=== PATIENT | female | born 1980 | race Caucasian/White ===

== ENCOUNTER 2023-01-25 17:56 | Emergency (ER) | payer BC, SELFPAY ==
--- NOTE | ~2023-01-25 | CT_ITS ---
EXAMINATION: CTA chest PE protocol DATE: 01/25/2023 19:48 INDICATION: hx cancer, SOB, tachycardia TECHNIQUE: Computed tomography angiography (CTA) of the chest was performed with 100 mL Omnipaque-350 intravenous contrast timed to evaluate the pulmonary arteries. Coronal maximum intensity projection 3D-reconstructions were created by the technologist. The dose-length product (DLP) was 315.77 mGy-cm. Automated exposure control and iterative reconstruction technique were employed. COMPARISON: None. FINDINGS: Lung parenchyma and airways: Clear. Pleura: Unremarkable. Thoracic inlet, axillae and chest wall: Bilateral breast augmentation. Right chest port terminating i n the distal SVC. Thoracic aorta: Normal. Mediastinum: Normal. Heart and pericardium: Normal. Coronary artery calcifications: Absent. Upper abdomen: No significant finding. Bones: No acute osseous finding. Pulmonary arteries: Study quality: Beam hardening artifact from metallic components in the breast imp lants degraded image quality, overall the study is diagnostic. No pulmonary emboli detected. IMPRESSION: No CT evidence of acute pulmonary embolus. No acute thoracic process detected. Reviewed, dictated and finalized at location K.
--- NOTE | ~2023-01-25 | US_ITS ---
EXAMINATION: US venous doppler [facility] DATE: 01/25/2023 21:18 INDICATION: leg pain/swelling, hx CA, . TECHNIQUE: Grayscale images without and with compression and Doppler images of the bilateral lower ex tremity veins were obtained. COMPARISON: None FINDINGS: The right common femoral vein, profunda (deep) femoral vein, femoral vein, popliteal vein, peroneal v ein, posterior tibial veins, gastrocnemius vein, and greater saphenous vein are patent. The left common femoral vein, profunda (deep) femoral vein, femoral vein, popliteal vein, peroneal v ein, posterior tibial veins, gastrocnemius vein, and greater saphenous vein are patent. IMPRESSION: 1. Patent bilateral lower extremity veins. No evidence of deep venous thrombosis. Reviewed, dictated and finalized at location K. IMPRESSION: 1. Patent bilateral lower extremity veins. No evidence of deep venous thrombos is.
[2023-01-25 17:57] VITALS: BP 149/101; PULSE 144; RESP 20; TEMP 36.1; O2SAT 98
[2023-01-25 18:06] VITALS: BP 139/94; PULSE 142; RESP 15; O2SAT 100
[2023-01-25 18:14] VITALS: BP 139/94; PULSE 120; RESP 18; O2SAT 100
[2023-01-25 18:16] VITALS: BP 149/102; PULSE 123; RESP 14; O2SAT 100
--- NOTE | 2023-01-25 18:26 | ECG_ITS ---
Measurements Intervals [place] Rate: 111 P: 54 MA: 139 QRS: 35 QRSD: 82 T: 42 QT: 326 QTc: 444 Interpretive Statements SINUS TACHYCARDIA ABNORMAL ECG NO PREVIOUS ECG AVAILABLE FOR COMPARISON Electronically Signed On 01-25-2023 21:06:54 CDT by Al Kimble D.O.
--- NOTE | 2023-01-25 18:30 | ED.GENADULT ---
HPI - General Adult General Chief complaint: Unspecified Stated complaint: pain all over Time Seen by Provider: 01/25/23 18:14 History of Present Illness HPI narrative: Patient is a 42-year-old female with history of stage II breast cancer here due to fatigue, nausea, and pain all over . She had her first dose of chemotherapy 2 days ago. She follows with an oncologist at [facility]. States that she woke up this morning feeling quite fatigued which has worsened throughout the day when she is trying to do her ADLs. States that she feels very dehydrated and anxious. Some shortness of breath as well in addition to bilateral leg soreness . Related Data Allergies Allergy/AdvReac Type Severity Reaction Status Date / Time No Known Allergies Allergy Verified 01/25/23 18:15 Review of Systems Review of Systems: Gen: Reports anxiety and weakness Eyes: Denies eye pain or visual change ENT: Denies congestion Respiratory: Reports shortness of breath CV: Denies chest pain or palpitations GI: Denies abdominal pain nausea, emesis or diarrhea : denies burning, urgency, frequency or hematuria Musculoskeletal: Denies back pain or muscle pain Neuro: Denies numbness, tingling, weakness or focal weakness Skin: Denies rash Except as documented, all other systems reviewed and negative Exam Narrative: APPEARANCE: Very anxious appearing Head: Normocephalic and atraumatic. EYES: PERRLA/EOMI, conjunctivae clear NOSE: No nasal drainage EARS: External ear normal in appearance THROAT: Oropharynx is clear. Mucous membranes are moist. NECK: Supple. No adenopathy, no masses. RESPIRATORY: Airway patent, respirations nonlabored. Clear to auscultation bilaterally, no rales, rhonchi, wheezing. CARDIOVASCULAR: 2+ dp/pt pulses. Tachycardic. Regular rhythm without murmurs, rubs, or gallops. ABDOMINAL: Normoactive bowel sounds. Soft, nontender, nondistended. No rebound tenderness or guarding. MUSCULOSKELETAL: No calf tenderness. Extremities are warm and well-perfused. Moves all extremities well. No edema. NEURO: Normal speech. No focal neurologic deficits. SKIN: Skin is warm and dry. No rashes. PSYCHIATRIC: Normal affect/mood. Course Vital Signs Vital signs: Vital Signs Temperature 97.0 F L 01/25/23 17:57 Pulse Rate 144 H 01/25/23 17:57 Respiratory Rate 20 05/09/23 17:57 Blood Pressure 149/101 H 01/25/23 17:57 Pulse Oximetry 98 01/25/23 17:57 Oxygen Delivery Room Air 01/25/23 17:57 Temperature 97.0 F L 01/25/23 17:57 Pulse Rate 109 H 01/25/23 20:23 Respiratory Rate 15 01/25/23 20:23 Blood Pressure 121/78 01/25/23 20:23 Pulse Oximetry 97 01/25/23 20:23 Oxygen Delivery Room Air 01/25/23 17:57 Medical Decision Making MDM Narrative Medical decision making narrative: 42 year old female here due to anxiety, fatigue and feeling dehydrated after receiving her first dose of chemotherapy. She is very anxious appearing and tachycardic. Labs pertinent for lactic of 2.3, EKG/trop non-ischemic, normal white count. Urine with trace leuks- patient not having sx to suggest need for treatment, likely contaminated. CTA PE negative. US venous negative bilaterally. Patient feeling completely improved after anxiolytics and fluids. She believes she had a panic attack surrounding her health diagnoses and feels ready to go home. She was discharged home to follow up with her oncologist; we discussed return precautions and she voiced understanding. Vital Signs Vital Signs: Vital Signs Temperature 97.0 F L 01/25/23 17:57 Pulse Rate 144 H 01/25/23 17:57 Respiratory Rate 20 01/25/23 17:57 Blood Pressure 149/101 H 01/25/23 17:57 Pulse Oximetry 98 01/25/23 17:57 Oxygen Delivery Room Air 01/25/23 17:57 Temperature 97.0 F L 01/25/23 17:57 Pulse Rate 109 H 01/25/23 20:23 Respiratory Rate 15 01/25/23 20:23 Blood Pressure 121/78 01/25/23 20:23 Pulse Oximetry 97 01/25/23 20:23 [facility]
[2023-01-25] MEDS: ONDANSETRON INJ 4 MG/2 ML VIAL IV PUSH (18:46)
[2023-01-25] MEDS: LORazepam INJ (*CRX) 2 MG/ML VIAL 1 MG IV PUSH (18:46)
[2023-01-25] MEDS: SODIUM CHLORIDE 0.9% IV 1,000 ML 999 ML IV CONT ×2 (18:47→20:45)
[2023-01-25 18:53] LABS: Hematocrit 39.2 % (37.0-47.0); Hemoglobin 13.4 g/dL (12.0-15.0); Mean Corpuscular HGB Conc 34.2 g/dl (32-36); Mean Corpuscular Hemoglobin 31.5 pg (26-34); Mean Corpuscular Volume 92.2 fl (80-100); Mean Platelet Volume 9.8 fl (7.4-10.4); Platelet Count Result 228 k/mm3 (150-375); Red Blood Count 4.25 M/mm3 (4.2-5.4); Red Cell Distribution Width 12.4 % (11.5-14.5); White Blood Count 6.8 K/mm3 (4.5-10.0)
[2023-01-25 19:05] LABS: Alanine Aminotransferase 32 U/L (6-35); Albumin Level 4.5 g/dL (3.5-5.1); Alkaline Phosphatase 123 U/L (38-126); Anion Gap 10 mmol/L (8-16); Aspartate Amino Transferase 32 U/L (14-36); Bilirubin,Total 0.9 mg/dL (0.2-1.3); Blood Urea Nitrogen 11 mg/dL (7-17); Calcium 8.6 mg/dL (8.4-10.2); Carbon Dioxide 22 mmol/L (22-30); Chloride 102 mmol/L (98-107); Estimated CRCL calculation 146 ml/min; Estimated Glomerular Filt Rate > 60; Glucose 123 mg/dL (65-110); Lipase 87 U/L (23-300); Potassium 3.9 mmol/L (3.4-5.0); Sodium 134 mmol/L (137-145)
[2023-01-25 19:09] LABS: Partial Thromboplastin Time 29.1 SECONDS (22.3-36.8)
[2023-01-25 19:16] LABS: Troponin I < 0.012 ng/mL (0.000-0.034)
[2023-01-25 19:33] LABS: Band Neutrophils Percent 2 % (0-6); Lymphocytes Absolute Manual 0.95 K/mm3 (1.1-4.5); Monocytes Absolute Manual 0.34 K/mm3 (0.1-0.90); Monocytes Percent Manual 5 % (3-9); Neutrophils Percent Manual 79 % (46-73); Platelet Estimate Adequate (Adequate); Schistocytes None Seen (NORMAL); Total Cells Counted 100
[2023-01-25 19:53] LABS: Lactic Acid Reflex 2.3 mmol/L (0.7-2.0)
[2023-01-25 20:18] LABS: Appearance Urine Cloudy (Clear); Bacteria Urine None Seen /hpf; Bilirubin Urine Negative (Negative); Blood Urine 2+ (Negative); Color Urine Yellow (Yellow); Glucose Urine UA Negative (Negative); Ketones Urine 1+ mg/dL (Negative); Leukocyte Esterase Ur Trace LEU/UL (Negative); Nitrate Urine Negative (Negative); Non Pathogenic Casts 0-2; Protein Urine Negative (Negative); Specific Grav Ur 1.027 (1.001-1.035); Squamous Epithelial Cell Urine Few /hpf (Few); WBC Urine 0-5 /hpf; pH Urine 7.5 (5.0-9.0)
[2023-01-25 20:23] VITALS: BP 121/78; PULSE 109; PULSE 110; RESP 15; O2SAT 97
[2023-01-25 20:23] LABS: Add Urine Microscopic? YES
[2023-01-25 21:50] LABS: Reflex Lactic Acid Yes or No Add Lactic
[2023-01-25] MEDS: CENTRAL LINE FLUSH 10 ML IV PUSH (23:45)
== END 2023-01-25 23:35 | disposition home or self-care (01) ==
PROVIDERS: Emergency Provider Physician Assistant
DX: F43.0 Acute stress reaction (principal); C50.919 Malignant neoplasm of unspecified site of unspecified female breast; Z79.60 Long term (current) use of unspecified immunomodulators and immunosuppressants; R00.0 Tachycardia, unspecified; M79.605 Pain in left leg; M79.604 Pain in right leg; R06.02 Shortness of breath
CPT/HCPCS: 36415; 71275; 80053; 81001; 81025; 83605; 83690; 84443; 84484; 85025; 85610; 85730; 93005; 93970; 96361; 96374; 96375; 99284; J2060; J2405; J7030; Q9967